=== PATIENT | female | born 1975 | race Caucasian/White ===

== ENCOUNTER → 2020-04-06 08:54 | Outpatient (BNVA) | payer SELFPAY | PROVIDERS: Family Provider Nurse Practitioner; PCP Nurse Practitioner | DX: Z79.899 Other long term (current) drug therapy (principal) | CPT/HCPCS: 80053 ==

== ENCOUNTER → 2022-11-26 10:14 | Outpatient (BNVA) | payer SELFPAY | PROVIDERS: Family Provider Nurse Practitioner; PCP Nurse Practitioner; Referring Provider Nurse Practitioner; Visit Provider Dermatology | DX: Z01.89 Encounter for other specified special examinations (principal) ==

== ENCOUNTER 2022-12-04 09:40 | Outpatient (CLI) | payer OTHER, SELFPAY ==
--- NOTE | 2022-12-04 09:50 | MM_ITS ---
WS: [id number] SCREENING DIGITAL BREAST TOMOSYNTHESIS MAMMOGRAM WITH CAD HISTORY: Z12.39 - Encounter for other screening for malignant neop... COMPARISON: None available. Bilateral CC and MLO with tomosynthesis and synthetic mammography submitted. Computer aided detection analyzed. Breast composition: The breasts are heterogeneously dense, which may obscure small masses. Possible c luster of calcifications in the posterior superior RIGHT breast. Seen only on the MLO projection. Add itional imaging recommended. These calcifications should be just medial to the nipple line. Otherwise no abnormality. MM/[place] [id number] IMPRESSION: BI-RADS: 0-Incomplete: Need additional imaging evaluation FOLLOW UP: Need Additional Imaging RIGHT BREAST: Magnification views of suspicious calcification MLO. True ML. If these calcifications persist after MLO magnification view attempt at identifyin g the calcifications in the CC projection will be obtained.
== END 2022-12-04 09:41 | disposition home or self-care (01) ==
LOC: RAD 09:43
PROVIDERS: PCP Nurse Practitioner; Visit Provider Nurse Practitioner Family
DX: Z12.31 Encounter for screening mammogram for malignant neoplasm of breast (principal); R92.1 Mammographic calcification found on diagnostic imaging of breast
CPT/HCPCS: 77063; 77067

== ENCOUNTER 2023-01-20 10:26 | Outpatient (CLI) | payer OTHER, SELFPAY ==
--- NOTE | 2023-01-20 10:42 | MM_ITS ---
WS: [id number] ADDITIONAL VIEWS RIGHT MAMMOGRAM WITH DIGITAL BREAST TOMOSYNTHESIS. HISTORY: ABNORMAL MAMMO COMPARISON: 12/04/2022 RIGHT MAMMOGRAM: Magnification views and true ML with digital breast tomosynthesis and SM. Calcifications are less apparent as compared to the screening examination. There are still a few very ill-defined calcifications which are difficult to identified in both views. Background of dense fibr oglandular tissue makes identifying these calcifications difficult. MM/[place] [id number] IMPRESSION: BI-RADS: 3-Probably Benign FOLLOW UP: 6 Month Follow-up Recommend diagnostic RIGHT mammogram follow-up in 6 months with magnification v iews of the ill-defined calcifications in the RIGHT breast. Surveillance imagin g every 6 months will need to be obtained to evaluate for stability.
== END 2023-01-20 10:27 | disposition home or self-care (01) ==
PROVIDERS: PCP Nurse Practitioner; Visit Provider Nurse Practitioner Family
DX: R92.8 Other abnormal and inconclusive findings on diagnostic imaging of breast (principal); R92.1 Mammographic calcification found on diagnostic imaging of breast
CPT/HCPCS: 77061; G0279

== ENCOUNTER 2023-08-12 13:04 | Outpatient (CLI) | payer SELFPAY ==
--- NOTE | 2023-08-12 13:00 | MM_ITS ---
WS: [id number] DIAGNOSTIC RIGHT DIGITAL TOMOSYNTHESIS MAMMOGRAPHY WITH CAD. HISTORY: R92.1 - Mammographic calcification found on diagnostic im... COMPARISON: 01/20/2023, 12/04/2022 Technique: CC, MLO and ML views. Magnification views RIGHT breast. Breast composition: The breasts are heterogeneously dense, which may obscure small masses. The previo usly described very small calcifications are not as well appreciated today. These calcifications are very small and difficult to visualize. There is no mass. No distortion. IMPRESSION: MM/[place] [id number] BI-RADS: 2-Benign FOLLOW UP: See Report Return to annual screening mammography. The calcifications within the RIGHT breast are not readily identifiable on toda y's exam.
== END 2023-08-12 13:05 | disposition home or self-care (01) ==
LOC: RAD 13:05
PROVIDERS: PCP Nurse Practitioner; Visit Provider Nurse Practitioner
DX: R92.1 Mammographic calcification found on diagnostic imaging of breast (principal); R92.331 Mammographic heterogeneous density, right breast
CPT/HCPCS: 77061; G0279